=== PATIENT | female | born 1940 | race Caucasian/White ===

== ENCOUNTER → 2016-12-17 | Outpatient (CLI) | payer MEDICARE, OTHER | LOC: RAD 11:18 | DX: R09.1 Pleurisy (principal); J43.9 Emphysema, unspecified | CPT/HCPCS: 71020 ==

== ENCOUNTER 2020-09-22 02:27 | Emergency (ER) | payer MEDICARE, OTHER ==
[~2020-09-22 02:27] MED LIST: ULTRAM50 MG PO
[2020-09-22 02:41] LABS: RED BLOOD COUNT 4.05 M/UL (4.00-5.10); WHITE BLOOD COUNT 5.3 K/UL (4.5-11.0)
[2020-09-22 03:34] LABS: BUN/CREATININE RATIO 20 (0-10)
== END 2020-09-22 04:33 | disposition home or self-care (01) ==
LOC: ER1 02:27
PROVIDERS: Emergency Medicine
DX: E87.1 Hypo-osmolality and hyponatremia (principal); E11.9 Type 2 diabetes mellitus without complications; Z88.0 Allergy status to penicillin; Z88.2 Allergy status to sulfonamides
CPT/HCPCS: 80053; 81001; 82550; 82553; 83735; 83874; 84100; 84439; 84443; 84484; 85025; 93005; 99283

== ENCOUNTER 2021-02-24 19:09 | Emergency (ER) | payer MEDICARE, OTHER ==
[2021-02-24 20:13] LABS: HEMOGLOBIN 13.3 gm/dl (12.3-15.3); RED BLOOD COUNT 4.4 M/UL (4.00-5.10); WHITE BLOOD COUNT 5.4 K/UL (4.5-11.0)
== END 2021-02-25 00:35 | disposition home or self-care (01) ==
LOC: ER1 19:09
PROVIDERS: Emergency Medicine
DX: R07.89 Other chest pain (principal); R53.1 Weakness; E87.1 Hypo-osmolality and hyponatremia; I10 Essential (primary) hypertension; M54.5 Low back pain; E11.9 Type 2 diabetes mellitus without complications; Z88.0 Allergy status to penicillin; Z88.2 Allergy status to sulfonamides; Z79.899 Other long term (current) drug therapy; W01.0XXA Fall on same level from slipping, tripping and stumbling without subsequent striking against object, initial encounter
CPT/HCPCS: 71111; 72100; 73030; 73090; 73502; 73562; 73590; 73630; 80053; 81001; 82550; 82553; 83690; 83735; 83874; 84100; 84484; 85025; 85610; 85730; 93005; 99284

== ENCOUNTER → 2021-08-03 | Outpatient (CLI) | payer MEDICARE, OTHER | LOC: EMI 15:36 | DX: R93.89 Abnormal findings on diagnostic imaging of other specified body structures (principal); R26.9 Unspecified abnormalities of gait and mobility | CPT/HCPCS: 70551 ==

== ENCOUNTER 2022-05-10 20:16 | Emergency (ER) | payer MEDICARE, OTHER ==
[2022-05-10 21:37] LABS: HEMOGLOBIN 12.6 gm/dl (12.3-15.3); RED BLOOD COUNT 4.2 M/UL (4.00-5.10); WHITE BLOOD COUNT 6.9 K/UL (4.5-11.0)
== END 2022-05-11 00:50 | disposition home or self-care (01) ==
LOC: ER1 20:16
PROVIDERS: Physician Assistant
DX: K91.840 Postprocedural hemorrhage of a digestive system organ or structure following a digestive system procedure (principal); I10 Essential (primary) hypertension; E11.9 Type 2 diabetes mellitus without complications; Z88.0 Allergy status to penicillin; Z51.81 Encounter for therapeutic drug level monitoring
CPT/HCPCS: 80048; 85025; 85610; 96374; 99283; J2405

== ENCOUNTER → 2022-05-13 | Outpatient (CLI) | payer MEDICARE, OTHER | LOC: EMI 13:45 | DX: M51.16 Intervertebral disc disorders with radiculopathy, lumbar region (principal); M51.17 Intervertebral disc disorders with radiculopathy, lumbosacral region | CPT/HCPCS: 72148 ==

== ENCOUNTER → 2022-05-13 | Outpatient (CLI) | payer MEDICARE, OTHER | LOC: KOH-I 15:15 | DX: M25.552 Pain in left hip (principal); M25.551 Pain in right hip; M19.072 Primary osteoarthritis, left ankle and foot; M19.071 Primary osteoarthritis, right ankle and foot | CPT/HCPCS: 73610 ==